=== PATIENT | female | born 1995 | race African-American/Black ===

== ENCOUNTER 2016-04-14 17:55 | Emergency (ER) | payer MEDICAID, SELFPAY ==
[2016-04-14 18:13] LABS: Bilirubin Negative (Negative); Blood, Urine Negative (Negative); Clarity Slightly Cloudy (Clear); Glucose, Urine (Dipstick) Negative (Negative); Leukocyte Trace (Negative); Nitrite Negative (Negative); Protein, Urine (Dipstick) Negative (Neg-Trace); Urobilinogen 0.2 mg/dL (0.2-1.0); pH, Urine 5.5 (5.0-9.0)
[2016-04-14 18:14] LABS: Pregnancy Test - Urine (BHCG) NEGATIVE (NEGATIVE); Pregu Control Background? CLEAR/WHITE (CLR/WHITE); Pregu Control Bar Appear? YES (CONTROL BAR); Specific Gravity 1.028 (1.002-1.036); Specific Gravity, Urine 1.028 (1.005-1.030)
[2016-04-14 18:18] LABS: RBC/HPF 0-3 HPF (0-3)
[2016-04-14 18:19] LABS: Bacteria/HPF 2+ HPF (None Seen); Squamous Epithelial 0-3 HPF (0-3); WBC/HPF 21-50 HPF (0-3)
--- NOTE | 2016-04-14 19:14 | ERRECORD ---
[facility] EMERGENCY RECORD HPI ABDOMINAL PAIN (18:05 ABUS) CHIEF COMPLAINTS: Patient presents for evaluation of abdominal pain. HISTORIAN: History provided by patient, 20 yr old F here with INESSA pain and cramping with nausea x 2 weeks without emesis, rash, vaginal discharge or itching. Sexually active (unprotected x 1). Unsure if . No dysuria. LOCATION FEMALE: Symptoms are generalized, no radiation. QUALITY: Pain is dull in nature, described as cramping. SEVERITY: Currently symptoms are mild. TIME COURSE: Gradual onset of symptoms, 2 weeks, Symptoms are intermittent, There has been no change in the patient's symptoms over time. ASSOCIATED WITH FEMALE: No associated symptoms, Associated with nausea. RELIEVED BY: Patient's condition relieved by nothing. EXACERBATED BY: Patient's condition exacerbated by nothing. ROS (18:07 ABUS) CONSTITUTIONAL: Negative constitutional review of systems, Historian denies chills, denies fever. CARDIOVASCULAR: Negative cardiovascular review of systems, Historian denies chest pain, denies palpitations. RESPIRATORY: Negative respiratory review of systems, Historian denies cough, denies shortness of breath. GI: Historian reports abdominal pain, denies constipation, denies diarrhea, reports nausea, denies vomiting. GENITOURINARY FEMALE: Negative genitourinary review of systems, Historian denies dysuria, denies frequency. SKIN: Negative skin review of systems, Historian denies rash, denies skin changes. NEUROLOGIC: Negative neurologic review of systems, Historian denies headache. HEMO/LYMPHATIC: Normal hematologic/lymphatic system review, Historian denies abnormal blood clotting. PAST MEDICAL HISTORY (18:03 MDEB) MEDICAL HISTORY: No past medical history, Flu vaccine not up to date, Tetanus immunization up to date, Pneumococcal vaccine not up to date, No past medical history. FEMALE SURGICAL HISTORY: Surgical history of tonsillectomy, TONSILLECTOMY. PSYCHIATRIC HISTORY: No previous psychiatric history. SOCIAL HISTORY: Patient denies alcohol use, Patient denies drug use, Patient has no smoking history, Patient denies alcohol use, Patient denies drug use, Patient has no smoking history, Lives at home, with family. KNOWN ALLERGIES No Known Drug Allergies &a-1R&a+25V*p+0X*[id number]*c202B*c15G*c2P*p-0X&a-25V&a+1R Name: Yovani Fairchild : 1995 F20 MedRec: [id number] AcctNum: [id number] Prepared: ThuApr 14, 2016 18:57 by Interface Page 1 of 3 pMD [facility] EMERGENCY RECORD CURRENT MEDICATIONS No recorded medications VITAL SIGNS (18:00 MDEB) VITAL SIGNS: BP: 109/67, Pulse: 95, Resp: 20, Temp: 98.8 (Oral), Pain: 6, O2 sat: 98 on Room Air, Time: 04/14/2016 18:00. PHYSICAL EXAM (18:07 ABUS) CONSTITUTIONAL: Vital signs reviewed, Patient afebrile, Pulse normal, Blood pressure normal, Respiratory rate normal, Patient appears non toxic, Patient appears pain free, Patient alert and oriented to person, place and time. NECK: Neck exam normal, Neck exam included findings of normal range of motion, Trachea midline, no meningeal signs, no cervical adenopathy, no tenderness. RESPIRATORY CHEST: Respiratory and chest exam normal, Respiratory exam included findings of no respiratory distress, Chest exam included findings of chest movement symmetrical, Chest expansion equal. ABDOMEN FEMALE: Abdominal exam included findings of abdomen tender, to the epigastric region, no distension. BACK: Back exam normal, Back exam included findings of normal inspection, range of motion normal, no tenderness. NEURO: Neuro exam normal, Neuro exam findings include patient oriented to person, place and time, Speech normal, Gait normal. SKIN: Skin exam normal, Skin exam included findings of skin warm, dry, and normal in color, no rash. DOCTOR NOTES (18:08 ABUS) TEXT: 20 yr old F here with INESSA pain and cramping with nausea x 2 weeks without emesis, rash, vaginal discharge or itching. Sexually active (unprotected x 1). EXAM: NAD. abd nonspecific. Afebrile. VS stable. DDX: , Gastritis, Peptic Ulcer Disease, Esophageal Spasm, Pancreatitis, Cholecystitis, Cholelithiasis, Hepatitis. PLAN: UA, Antiemetics Final Dispo: Dx: UTI. Rx: bacrim and Zofran. Home with follow up and return precautions. All results of testing and evaluation were shared with the patient who verbalized understanding and agreement with the plan of care. Level of Complexity / Medical Decision Making: Low. PROBLEM LIST No recorded problems DIAGNOSIS (18:43 ABUS) FINAL: PRIMARY: UTI. PRESCRIPTION (18:43 ABUS) &a-1R&a+25V*p+0X*c3797W*c202B*c15G*c2P*p-0X&a-25V&a+1R Name: Yovani Fairchild : 1995 10 MedRec: [id number] AcctNum: [id number] Prepared: ThuApr 14, 2016 18:57 by Interface Page 2 of 3 pMD [facility] EMERGENCY RECORD Pyridium: TABLET : 100 mg : ORAL : Quantity: 1 Unit: tab(s) Route: ORAL Schedule: 2 times a day Dispense: 10 Unit: tab(s) May substitute. Refills: No Refills . NOTES: No Refills. Zofran ODT: TABLET,DISINTEGRATING : 4 mg : ORAL : Quantity: 1 Unit: tab(s) Route: ORAL Schedule: every 6 hours PRN Dispense: 6 Unit: tab(s) May substitute. Refills: No Refills . NOTES: ^s=No Refills No Refills. Bactrim DS: TABLET : 800 mg-160 mg : ORAL : Quantity: 1 Unit: tab(s) Route: ORAL Schedule: 2 times a day Dispense: 10 Unit: tab(s) May substitute. Refills: No Refills . NOTES: ^s=^s=No Refills No Refills No Refills. DISPOSITION PATIENT: Disposition Type: Discharge, Disposition: *Discharge Home, Condition: Good. (18:43 ABUS) Patient left the department. (18:53 MDEB) Diamond: NATALY=MD Nita, Matt MADRIDEB=KORIN Francisco, Fara &a-1R&a+25V*p+0X*y2046J*c202B*c15G*c2P*p-0X&a-25V&a+1R Name: Yovani Fairchild : 1995 10 MedRec: [id number] AcctNum: [id number] Prepared: Didier Apr 14, 2016 18:57 by Interface Page 3 of 3 pMD MTDD
--- NOTE | 2016-04-14 19:19 | PICIS ---
[facility] EMERGENCY RECORD TRIAGE (18:03 MDEB) PATIENT: NAME: Yovani Fairchild, AGE: 20, GENDER: female, : Sat 1995, TIME OF GREET: ThuApr 14, 2016 17:56, PREFERRED LANGUAGE: Romanian, RACE: Black or , ETHNICITY: Not or , FALL RISK: NO, ECODE BILLING MAP: [facility], SSN: [id number], Zip Code: [address], KG WEIGHT: 52.16, PHONE: , , , PERSON ID: [id number], PCP: NO PCP. (18:03 MDEB) TRIAGE NOTES: NAUSEA/ ABD PAIN FOR 2 WKS. (18:03 MDEB) COMPLAINT: ABDOMINAL PAIN,NAUSEA. (18:03 MDEB) ADMISSION: URGENCY: 3 Urgent, ADMISSION SOURCE: Home, TRANSPORT: Walk-in, BED: TRIAGE. (18:03 MDEB) PAIN: Patient complains of pain described as, aching, on a scale 0-10 patient rates pain as 6. (18:03 MDEB) IMMUNIZATIONS: Tetanus immunization up to date. (18:03 MDEB) TRIAGE SCREENING: Patient denies suicidal ideation, Patient denies presence of domestic violence. (18:03 MDEB) PROVIDERS: TRIAGE NURSE: Fara Francisco RN. (18:03 MDEB) VITAL SIGNS: BP 109/67, Pulse 95, Resp 20, Temp 98.8, (Oral), Pain 6, O2 Sat 98, on Room Air, Time 04/14/2016 18:00. (18:00 MDEB) PREVIOUS VISIT ALLERGIES: No Known Drug Allergies. (18:03 MDEB) KNOWN ALLERGIES No Known Drug Allergies CURRENT MEDICATIONS No recorded medications VITAL SIGNS (18:00 MDEB) VITAL SIGNS: BP: 109/67, Pulse: 95, Resp: 20, Temp: 98.8 (Oral), Pain: 6, O2 sat: 98 on Room Air, Time: 04/14/2016 18:00. ORDER DETAILS Order Name: Test, Urine (BHCG), Status: Active, Time: 18:05 04/14/2016, User: AB, - Ordered for: MD Moya Anthony, - Entered by: MD Moya Anthony - ThuApr 14, 2016 18:05, - Quantity: 1, Order Name: Urinalysis w/ Rflx Microscopic, Status: Active, Time: 18:05 04/14/2016, User: NATALY, - Ordered for: MD Moya Anthony, - Entered by: MD Moya Anthony - ThuApr 14, 2016 18:05, - Quantity: 1. HPI ABDOMINAL PAIN (18:05 ABUS) CHIEF COMPLAINTS: Patient presents for evaluation of abdominal pain. HISTORIAN: History provided by patient, 20 yr old F here with INESSA pain and cramping with nausea &a-1R&a+25V*p+0X*m5232E*c202B*c15G*c2P*p-0X&a-25V&a+1R Name: Yovani Fairchild : 1995 F20 MedRec: [id number] AcctNum: [id number] Prepared: ThuApr 14, 2016 19:04 by Interface Page 1 of 5 pMD [facility] EMERGENCY RECORD x 2 weeks without emesis, rash, vaginal discharge or itching. Sexually active (unprotected x 1). Unsure if . No dysuria. LOCATION FEMALE: Symptoms are generalized, no radiation. QUALITY: Pain is dull in nature, described as cramping. SEVERITY: Currently symptoms are mild. TIME COURSE: Gradual onset of symptoms, 2 weeks, Symptoms are intermittent, There has been no change in the patient's symptoms over time. ASSOCIATED WITH FEMALE: No associated symptoms, Associated with nausea. RELIEVED BY: Patient's condition relieved by nothing. EXACERBATED BY: Patient's condition exacerbated by nothing. ROS (18:07 ABUS) CONSTITUTIONAL: Negative constitutional review of systems, Historian denies chills, denies fever. CARDIOVASCULAR: Negative cardiovascular review of systems, Historian denies chest pain, denies palpitations. RESPIRATORY: Negative respiratory review of systems, Historian denies cough, denies shortness of breath. GI: Historian reports abdominal pain, denies constipation, denies diarrhea, reports nausea, denies vomiting. GENITOURINARY FEMALE: Negative genitourinary review of systems, Historian denies dysuria, denies frequency. SKIN: Negative skin review of systems, Historian denies rash, denies skin changes. NEUROLOGIC: Negative neurologic review of systems, Historian denies headache. HEMO/LYMPHATIC: Normal hematologic/lymphatic system review, Historian denies abnormal blood clotting. PAST MEDICAL HISTORY (18:03 MDEB) MEDICAL HISTORY: No past medical history, Flu vaccine not up to date, Tetanus immunization up to date, Pneumococcal vaccine not up to date, No past medical history. FEMALE SURGICAL HISTORY: Surgical history of tonsillectomy, TONSILLECTOMY. PSYCHIATRIC HISTORY: No previous psychiatric history. SOCIAL HISTORY: Patient denies alcohol use, Patient denies drug use, Patient has no smoking history, Patient denies alcohol use, Patient denies drug use, Patient has no smoking history, Lives at home, with family. PHYSICAL EXAM (18:07 ABUS) CONSTITUTIONAL: Vital signs reviewed, Patient afebrile, Pulse normal, Blood pressure normal, Respiratory rate normal, Patient appears non toxic, Patient appears pain free, Patient alert and oriented to person, place and time. NECK: Neck exam normal, Neck exam included findings of normal &a-1R&a+25V*p+0X*j8565M*c202B*c15G*c2P*p-0X&a-25V&a+1R Name: Yovani Fairchild : 1995 F20 MedRec: [id number] AcctNum: [id number] Prepared: ThuApr 14, 2016 19:04 by Interface Page 2 of 5 pMD [facility] EMERGENCY RECORD range of motion, Trachea midline, no meningeal signs, no cervical adenopathy, no tenderness. RESPIRATORY CHEST: Respiratory and chest exam normal, Respiratory exam included findings of no respiratory distress, Chest exam included findings of chest movement symmetrical, Chest expansion equal. ABDOMEN FEMALE: Abdominal exam included findings of abdomen tender, to the epigastric region, no distension. BACK: Back exam normal, Back exam included findings of normal inspection, range of motion normal, no tenderness. NEURO: Neuro exam normal, Neuro exam findings include patient oriented to person, place and time, Speech normal, Gait normal. SKIN: Skin exam normal, Skin exam included findings of skin warm, dry, and normal in color, no rash. EVENTS TRANSFER: Triage to Emergency Triage. (ThuApr 14, 2016 18:03 MDEB) Emergency Triage to Main ED -03. (18:05 MDEB) Removed from Emergency Main ED -03. (18:53 YUE) DOCTOR NOTES (18:08 ABUS) TEXT: 20 yr old F here with INESSA pain and cramping with nausea x 2 weeks without emesis, rash, vaginal discharge or itching. Sexually active (unprotected x 1). EXAM: NAD. abd nonspecific. Afebrile. VS stable. DDX: , Gastritis, Peptic Ulcer Disease, Esophageal Spasm, Pancreatitis, Cholecystitis, Cholelithiasis, Hepatitis. PLAN: UA, Antiemetics Final Dispo: Dx: UTI. Rx: bacrim and Zofran. Home with follow up and return precautions. All results of testing and evaluation were shared with the patient who verbalized understanding and agreement with the plan of care. Level of Complexity / Medical Decision Making: Low. PROBLEM LIST No recorded problems DIAGNOSIS (18:43 ABUS) FINAL: PRIMARY: UTI. DISPOSITION PATIENT: Disposition Type: Discharge, Disposition: *Discharge Home, Condition: Good. (18:43 ABUS) Patient left the department. (18:53 MDSEBASTIEN) INSTRUCTION (18:44 ABUS) DISCHARGE: UTI CYSTITIS FEMALE ADULT. FOLLOWUP: [facility], /[facility], [address] [place] [address], , Follow up with Primary &a-1R&a+25V*p+0X*p5037J*c202B*c15G*c2P*p-0X&a-25V&a+1R Name: Yovani Fairchild : 1995 F20 MedRec: [id number] AcctNum: [id number] Prepared: ThuApr 14, 2016 19:04 by Interface Page 3 of 5 pMD [facility] EMERGENCY RECORD Care Physician in 3-4 days. SPECIAL: As discussed in the ED, please keep any upcoming appointments with your primary doctor or call the referral provided to you today to establish a follow up evaluation or ongoing medical care. Please come back if you start to have fever, vomiting, or any symptoms that concern you. PRESCRIPTION (18:43 ABUS) Pyridium: TABLET : 100 mg : ORAL : Quantity: 1 Unit: tab(s) Route: ORAL Schedule: 2 times a day Dispense: 10 Unit: tab(s) May substitute. Refills: No Refills . NOTES: No Refills. Zofran ODT: TABLET,DISINTEGRATING : 4 mg : ORAL : Quantity: 1 Unit: tab(s) Route: ORAL Schedule: every 6 hours PRN Dispense: 6 Unit: tab(s) May substitute. Refills: No Refills . NOTES: ^s=No Refills No Refills. Bactrim DS: TABLET : 800 mg-160 mg : ORAL : Quantity: 1 Unit: tab(s) Route: ORAL Schedule: 2 times a day Dispense: 10 Unit: tab(s) May substitute. Refills: No Refills . NOTES: ^s=^s=No Refills No Refills No Refills. IMAGING *DISCHARGE INSTRUCTIONS RECEIPT: Image captured from scanner. (18:52 MDEB) *SUPPLY CHARGE SHEET: Image captured from scanner. (18:53 MDEB) ADMIN DIGITAL SIGNATURE: MD Moya Anthony. (18:44 ABUS) MD Moya Anthony. (18:46 ABUS) RESULTS LABORATORY: Test, Urine (BHCG) Collection DT: ThuApr 14, 2016 18:12, Test - Urine (BHCG) NEGATIVE , Range (NEGATIVE), Method of sensitivity- Indeterminant: results should be repeated, after 48 hours. Positive: results may be detected as early as 4-5 days before a first missed menses. Elimination of BHCG-, Elimination following first trimester D&C: 29-44 Days , Elimination following term : 8-24 Days , &a-1R&a+25V*p+0X*e3614J*c202B*c15G*c2P*p-0X&a-25V&a+1R Name: Yovani Fairchild : 1995 F20 MedRec: [id number] AcctNum: [id number] Prepared: ThuApr 14, 2016 19:04 by Interface Page 4 of 5 pMD [facility] EMERGENCY RECORD Specific [place] 1.028 , Range (1.002-1.036), A dilute urine specimen may, not contain roofing sales representative levels of hCG. If is still, suspected, a first morning urine specimen OR a random blood specimen should, be obtained from the patient 48-72 hours later and re-tested. , . (18:21 [facility]) Urinalysis w/ Rflx Microscopic Collection DT: ThuApr 14, 2016 18:12, Color Yellow , Range (Yellow), Clarity Slightly Cloudy , Range (Clear), Specific [place], Urine 1.028 , Range (1.005-1.030), pH, Urine 5.5 , Range (5.0-9.0), *Leukocyte Trace - H , Range (Negative), Nitrite Negative , Range (Negative), Protein, Urine (Dipstick) Negative mg/dL, Range (Neg-Trace), Glucose, Urine (Dipstick) Negative mg/dL, Range (Negative), Ketone, Urine Negative mg/dL, Range (Negative), Urobilinogen 0.2 mg/dL, Range (0.2-1.0), Bilirubin Negative , Range (Negative), Blood, Urine Negative , Range (Negative). (18:21 [facility]) Urine Microscopic Collection DT: ThuApr 14, 2016 18:12, RBC/HPF 0-3 HPF, Range (0-3), *WBC/HPF 21-50 - H HPF, Range (0-3), Squamous Epithelial 0-3 HPF, Range (0-3), *Bacteria/HPF 2+ - H HPF, Range (None Seen). (18:22 [facility]) Urinalysis w/ Rflx Microscopic Collection DT: ThuApr 14, 2016 18:12, Color Yellow , Range (Yellow), Clarity Slightly Cloudy , Range (Clear), Specific [place], Urine 1.028 , Range (1.005-1.030), pH, Urine 5.5 , Range (5.0-9.0), *Leukocyte Trace - H , Range (Negative), Nitrite Negative , Range (Negative), Protein, Urine (Dipstick) Negative mg/dL, Range (Neg-Trace), Glucose, Urine (Dipstick) Negative mg/dL, Range (Negative), Ketone, Urine Negative mg/dL, Range (Negative), Urobilinogen 0.2 mg/dL, Range (0.2-1.0), Bilirubin Negative , Range (Negative), Blood, Urine Negative , Range (Negative). (18:22 YUE) Diamond: NATALY=MD Nita, Matt TURNER=KORIN Francisco, Fara &a-1R&a+25V*p+0X*g7994W*c202B*c15G*c2P*p-0X&a-25V&a+1R Name: Yovani Fairchild : 1995 F20 MedRec: [id number] AcctNum: [id number] Prepared: ThuApr 14, 2016 19:04 by Interface Page 5 of 5 pMD MTDD
== END 2016-04-14 18:48 | disposition home or self-care (01) ==
LOC: MADERS 17:55
DX: N39.0 Urinary tract infection, site not specified (principal)
CPT/HCPCS: 81003; 81015; 81025; 87077; 87086; 87186; 99283

== ENCOUNTER 2016-09-25 12:27 | Emergency (ER) | payer MEDICAID, SELFPAY ==
[2016-09-25] MEDS ORDERED: Ondansetron ODT 4 MG TAB ONE (12:50)
[2016-09-25 12:51] LABS: Bilirubin Negative (Negative); Blood, Urine Negative (Negative); Clarity Clear (Clear); Glucose, Urine (Dipstick) Negative (Negative); Leukocyte Negative (Negative); Nitrite Negative (Negative); Pregnancy Test - Urine (BHCG) Negative (Negative); Protein, Urine (Dipstick) Negative (Neg-Trace); Urobilinogen 0.2 mg/dL (0.2-1.0)
[2016-09-25 12:52] LABS: Pregu Control Background? CLEAR/WHITE (CLR/WHITE); Pregu Control Bar Appear? YES (CONTROL BAR)
== END 2016-09-25 13:00 | disposition home or self-care (01) ==
LOC: MADERS 12:27
DX: R11.0 Nausea (principal)
CPT/HCPCS: 81003; 81025; 99283; Q0162

== ENCOUNTER 2016-11-11 20:56 | Emergency (ER) | payer SELFPAY ==
[2016-11-11] MEDS ORDERED: Ibuprofen 600 MG TAB ONE (21:31)
== END 2016-11-11 22:27 | disposition home or self-care (01) ==
LOC: MADERS 20:56
DX: J02.9 Acute pharyngitis, unspecified (principal)
CPT/HCPCS: 87081; 87430; 99283

== ENCOUNTER 2016-12-01 01:36 | Emergency (ER) | payer MEDICAID, SELFPAY ==
[2016-12-01] MEDS ORDERED: Lidocaine 1% w/Epinephrine 1:100K 20 ML VIAL ONE (02:32)
[2016-12-01] MEDS ORDERED: Naproxen 500 MG TAB ONE (03:40)
[2016-12-01] MEDS ORDERED: Bacitracin Zinc 1 Packet ONE (03:40)
[2016-12-01] MEDS ORDERED: Cephalexin 500 MG CAP ONE (03:40)
== END 2016-12-01 03:49 | disposition home or self-care (01) ==
LOC: MADERS 01:36
DX: S51.811A Laceration without foreign body of right forearm, initial encounter (principal); X99.9XXA Assault by unspecified sharp object, initial encounter
CPT/HCPCS: 12001; J2001

== ENCOUNTER 2016-12-25 12:43 | Emergency (ER) | payer MEDICAID ==
[2016-12-25 13:14] LABS: Bilirubin Negative (Negative); Blood, Urine Negative (Negative); Clarity Clear (Clear); Glucose, Urine (Dipstick) Negative (Negative); Leukocyte Negative (Negative); Nitrite Negative (Negative); Protein, Urine (Dipstick) Negative (Neg-Trace); Specific Gravity, Urine 1.003 (1.002-1.036); Urobilinogen 0.2 mg/dL (0.2-1.0); pH, Urine 5.5 (5.0-9.0)
[2016-12-25 13:50] LABS: BHCG - Serum POSITIVE (NEGATIVE); Pregs Control Background? CLEAR/WHITE (CLR/WHITE); Pregs Control Bar Appear? YES (CONTROL BAR)
[2016-12-25 13:51] LABS: Pregnancy Test - Urine (BHCG) POSITIVE (Negative); Pregu Control Background? CLEAR/WHITE (CLR/WHITE); Pregu Control Bar Appear? YES (CONTROL BAR); Specific Gravity 1.003 (1.002-1.036)
== END 2016-12-25 14:13 | disposition home or self-care (01) ==
LOC: MADERS 12:43
DX: Z32.01 Encounter for pregnancy test, result positive (principal)
CPT/HCPCS: 36415; 81003; 81025; 84703; 99282

== ENCOUNTER 2017-03-07 20:41 | Emergency (ER) | payer MEDICAID, OTHER ==
[2017-03-07] MEDS ORDERED: Nitrofurantoin Monohyd/M-Cryst 100 MG CAP ONE (21:12)
[2017-03-07] MEDS ORDERED: HYDROcodone/Acetaminophen 5/325 mg Tablet ONE (21:12)
== END 2017-03-07 21:20 | disposition home or self-care (01) ==
LOC: MADERS 20:41
DX: O99.89 Other specified diseases and conditions complicating pregnancy, childbirth and the puerperium (principal); H65.91 Unspecified nonsuppurative otitis media, right ear
CPT/HCPCS: 99282

== ENCOUNTER 2017-04-03 18:40 | Emergency (ER) | payer OTHER ==
[2017-04-03] MEDS ORDERED: Oseltamivir 75 MG CAP ONE (20:08)
== END 2017-04-03 20:21 | disposition home or self-care (01) ==
LOC: MADERS 18:40
DX: O99.512 Diseases of the respiratory system complicating pregnancy, second trimester (principal); J11.1 Influenza due to unidentified influenza virus with other respiratory manifestations; Z3A.18 18 weeks gestation of pregnancy
CPT/HCPCS: 99283

== ENCOUNTER 2017-05-20 09:08 | Emergency (ER) | payer OTHER ==
[2017-05-20] MEDS ORDERED: Ondansetron ODT 4 MG TAB ONE (09:38)
[2017-05-20] MEDS ORDERED: Acetaminophen 325 MG TAB ONE (09:38)
[2017-05-20 10:10] LABS: Bilirubin Negative (Negative); Blood, Urine Trace (Negative); Glucose, Urine (Dipstick) Negative (Negative); Leukocyte Moderate (Negative); Nitrite Negative (Negative); Protein, Urine (Dipstick) 30 mg/dL (Neg-Trace); Urobilinogen 0.2 mg/dL (0.2-1.0)
[2017-05-20 10:11] LABS: Clarity Cloudy (Clear)
[2017-05-20 10:12] LABS: Bacteria/HPF 3+ HPF (None Seen); RBC/HPF 0-3 HPF (0-3)
== END 2017-05-20 10:30 | disposition home or self-care (01) ==
LOC: MADERS 09:08
DX: O99.512 Diseases of the respiratory system complicating pregnancy, second trimester (principal); J30.1 Allergic rhinitis due to pollen; O23.42 Unspecified infection of urinary tract in pregnancy, second trimester; Z3A.25 25 weeks gestation of pregnancy
CPT/HCPCS: 81003; 81015; 87077; 87086; 87186; 99284; Q0162

== ENCOUNTER 2017-07-07 23:41 | Emergency (ER) | payer OTHER ==
[~2017-07-07 23:41] MED LIST: Sodium Chloride 0.9% 1,000 ML BAG ONE
[2017-07-08 00:18] LABS: Bilirubin Negative (Negative); Blood, Urine Large (Negative); Clarity Clear (Clear); Glucose, Urine (Dipstick) Negative (Negative); Leukocyte Moderate (Negative); Nitrite Negative (Negative); Protein, Urine (Dipstick) Negative (Neg-Trace); Specific Gravity, Urine 1.015 (1.005-1.030); pH, Urine 7.5 (5.0-9.0)
[2017-07-08 00:25] LABS: #Basophils 0.1 thou/uL (0.0-0.2); #Eosinphils 0.2 thou/uL (0.0-0.7); #Lymphocytes 2.1 thou/uL (1.20-3.40); #Monocytes 0.7 thou/uL (0.11-0.59); #Neutrophils 7.8 thou/uL (1.40-6.50); %Basophils 0.7 % (0.0-1.0); %Eosinophils 1.6 % (0.0-10.0); %Lymphocytes 19.5 % (28.0-48.0); %Neutrophils 72.2 % (31.0-61.0); Hemoglobin 10.9 g/dL (12.0-16.0); Mean Corpuscular HGB CONC 35.2 g/dL (32.0-36.0); Mean Corpuscular Hemoglobin 29.4 pg (25.0-35.0); Mean Corpuscular Volume 83.6 fl (77.0-87.0); Mean Platelet Volume 8.2 fL (7.4-10.4); Platelet Count 212 thou/uL (130-400); RBC Distribution Width 12.5 % (11.5-14.5); Red Blood Cell (RBC) Count 3.73 mill/uL (4.00-5.20); White Blood Cell (WBC) Count 10.8 thou/uL (4.8-10.8)
[2017-07-08 00:32] LABS: Bacteria/HPF 2+ HPF (None Seen); RBC/HPF GREATER THAN 50-TNTC HPF (0-3)
[2017-07-08 00:34] LABS: PTT 27.2 SEC (22.9-36.1); Prothrombin Time 12.9 SEC (12.0-14.7)
[2017-07-08 00:44] LABS: ALT (SGPT) 11 U/L (8-55); AST (SGOT) 15 U/L (5-34); Albumin 3.7 g/dL (3.5-5.0); Alkaline Phosphatase 83 U/L (40-150); Anion Gap 13 mmol/L (10-20); BUN (Urea Nitrogen) 6 mg/dL (7.0-18.7); Bilirubin, Total 0.5 mg/dL (0.2-1.2); Carbon Dioxide 23 mmol/L (22-29); Chloride 108 mmol/L (98-107); Globulin 3.6 g/dL (2.4-3.5); Glucose 86 mg/dL (70-105); Potassium 3.6 mmol/L (3.5-5.1); Protein, Total 7.3 g/dL (6.0-8.3); Sodium 140 mmol/L (136-145)
[2017-07-08 01:14] LABS: Calc. Creatinine Clearance 0 mL/min (70-130); Estimated GFR-MDRD Greater than 90
== END 2017-07-08 00:53 | disposition short-term general hospital (02) ==
LOC: MADERS 23:41
DX: O46.93 Antepartum hemorrhage, unspecified, third trimester (principal); Z3A.32 32 weeks gestation of pregnancy
CPT/HCPCS: 80053; 81003; 81015; 85025; 85610; 85730; 86900; 86901; 99284; J7050

== ENCOUNTER 2017-10-10 01:39 | Emergency (ER) | payer OTHER ==
[2017-10-10 02:08] LABS: Bilirubin Negative (Negative); Blood, Urine Large (Negative); Clarity Cloudy (Clear); Glucose, Urine (Dipstick) Negative (Negative); Leukocyte Small (Negative); Nitrite Negative (Negative); Protein, Urine (Dipstick) 30 mg/dL (Neg-Trace); Urobilinogen 0.2 mg/dL (0.2-1.0); pH, Urine 5.5 (5.0-9.0)
[2017-10-10 02:11] LABS: Bacteria/HPF 3+ HPF (None Seen); RBC/HPF GREATER THAN 50-TNTC HPF (0-3); WBC/HPF 21-50 HPF (0-3); Yeast-All Forms Rare HPF (None Seen)
[2017-10-10 02:29] LABS: Pregnancy Test - Urine (BHCG) Negative (Negative); Pregu Control Background? CLEAR/WHITE (CLR/WHITE); Pregu Control Bar Appear? YES (CONTROL BAR)
[2017-10-10 02:31] LABS: #Basophils 0.1 thou/uL (0.0-0.2); #Eosinphils 0.5 thou/uL (0.0-0.7); #Lymphocytes 2.7 thou/uL (1.20-3.40); #Monocytes 0.5 thou/uL (0.11-0.59); %Eosinophils 6.4 % (0.0-10.0); %Lymphocytes 34.9 % (21.0-51.0); %Monocytes 6.6 % (0.0-10.0); %Neutrophils 51.2 % (42.0-75.0); Hemoglobin 11.3 g/dL (12.0-16.0); Mean Corpuscular HGB CONC 32.5 g/dL (32.0-36.0); Mean Corpuscular Hemoglobin 25.3 pg (27.0-31.0); Mean Platelet Volume 7.3 fL (7.4-10.4); Platelet Count 232 thou/uL (130-400); RBC Distribution Width 14.1 % (11.5-14.5); Red Blood Cell (RBC) Count 4.46 mill/uL (4.20-5.40); White Blood Cell (WBC) Count 7.9 thou/uL (4.8-10.8)
[2017-10-10 02:47] LABS: ALT (SGPT) 11 U/L (8-55); AST (SGOT) 13 U/L (5-34); Albumin 4.4 g/dL (3.5-5.0); Alkaline Phosphatase 54 U/L (40-150); Anion Gap 13 mmol/L (10-20); BUN (Urea Nitrogen) 13 mg/dL (7.0-18.7); Bilirubin, Total 0.6 mg/dL (0.2-1.2); Calc. Creatinine Clearance 0 mL/min (70-130); Calcium 9.4 mg/dL (7.8-10.44); Carbon Dioxide 24 mmol/L (22-29); Chloride 107 mmol/L (98-107); Estimated GFR-MDRD Greater than 90; Glucose 88 mg/dL (70-105); Potassium 3.6 mmol/L (3.5-5.1); Protein, Total 7.4 g/dL (6.0-8.3); Sodium 140 mmol/L (136-145)
== END 2017-10-10 03:03 | disposition home or self-care (01) ==
LOC: MADERS 01:39
DX: O72.2 Delayed and secondary postpartum hemorrhage (principal); O90.81 Anemia of the puerperium
CPT/HCPCS: 36415; 80053; 81003; 81015; 81025; 85025; 87077; 87086; 87186; 99284

== ENCOUNTER 2017-10-17 19:23 | Emergency (ER) | payer OTHER | END 2017-10-17 21:16 | disposition home or self-care (01) | LOC: MADERS 19:23 | DX: J06.9 Acute upper respiratory infection, unspecified (principal) | CPT/HCPCS: 99282 ==

== ENCOUNTER 2017-12-27 15:13 | Emergency (ER) | payer OTHER ==
[2017-12-27] MEDS ORDERED: Bacitracin Zinc 1 Packet ONE (15:28)
[2017-12-27] MEDS ORDERED: Ketorolac Tromethamine 30 MG/ML VIAL ONE (15:28)
[2017-12-27] MEDS ORDERED: Morphine 10 MG/ML VIAL ONE (15:28)
== END 2017-12-27 16:13 | disposition home or self-care (01) ==
LOC: MADERS 15:13
DX: T23.001A Burn of unspecified degree of right hand, unspecified site, initial encounter (principal); I95.9 Hypotension, unspecified; X19.XXXA Contact with other heat and hot substances, initial encounter
CPT/HCPCS: 16020; 96372; J1885; J2270

== ENCOUNTER 2018-02-19 18:30 | Emergency (ER) | payer OTHER | END 2018-02-19 19:10 | disposition home or self-care (01) | LOC: MADERS 18:30 | DX: R11.0 Nausea (principal); I95.9 Hypotension, unspecified | CPT/HCPCS: 99281 ==

== ENCOUNTER 2018-04-07 12:06 | Emergency (ER) | payer MEDICAID ==
[2018-04-07] MEDS ORDERED: Ondansetron PF 4 MG/2 ML Vial ONE (12:51)
[2018-04-07] MEDS ORDERED: Sodium Chloride 0.9% 1,000 ML ONE (12:51)
[2018-04-07 12:56] LABS: #Eosinphils 0.2 thou/uL (0.0-0.7); #Lymphocytes 1.4 thou/uL (1.20-3.40); #Monocytes 0.5 thou/uL (0.11-0.59); #Neutrophils 3.2 thou/uL (1.40-6.50); %Basophils 0.9 % (0.0-1.0); %Eosinophils 3.4 % (0.0-10.0); %Monocytes 8.7 % (0.0-10.0); Hemoglobin 12.2 g/dL (12.0-16.0); Mean Corpuscular HGB CONC 31.7 g/dL (32.0-36.0); Mean Corpuscular Hemoglobin 26.2 pg (27.0-31.0); Mean Corpuscular Volume 82.7 fL (78.0-98.0); Mean Platelet Volume 9.3 fL (7.4-10.4); Platelet Count 242 thou/uL (130-400); RBC Distribution Width 13.5 % (11.5-14.5); Red Blood Cell (RBC) Count 4.66 mill/uL (4.20-5.40); White Blood Cell (WBC) Count 5.3 thou/uL (4.8-10.8)
[2018-04-07 13:06] LABS: Bilirubin Negative (Negative); Blood, Urine Negative (Negative); Clarity Hazy (Clear); Glucose, Urine (Dipstick) Negative (Negative); Leukocyte Moderate (Negative); Nitrite Negative (Negative); Protein, Urine (Dipstick) Negative (Neg-Trace)
[2018-04-07 13:07] LABS: Bacteria/HPF 1+ HPF (None Seen); RBC/HPF 0-3 HPF (0-3); Specific Gravity, Urine 1.023 (1.002-1.036)
[2018-04-07 13:14] LABS: ALT (SGPT) 9 U/L (8-55); AST (SGOT) 12 U/L (5-34); Albumin 4.7 g/dL (3.5-5.0); Alkaline Phosphatase 49 U/L (40-150); Anion Gap 16 mmol/L (10-20); BUN (Urea Nitrogen) 10 mg/dL (7.0-18.7); Bilirubin, Total 0.4 mg/dL (0.2-1.2); Calc. Creatinine Clearance 0 mL/min (70-130); Calcium 10.3 mg/dL (7.8-10.44); Carbon Dioxide 22 mmol/L (22-29); Chloride 104 mmol/L (98-107); Estimated GFR-MDRD Greater than 90; Globulin 3.7 g/dL (2.4-3.5); Glucose 85 mg/dL (70-105); Potassium 3.6 mmol/L (3.5-5.1); Protein, Total 8.4 g/dL (6.0-8.3); Sodium 138 mmol/L (136-145)
== END 2018-04-07 14:01 | disposition home or self-care (01) ==
LOC: MADERS 12:06
DX: O21.9 Vomiting of pregnancy, unspecified (principal); Z3A.13 13 weeks gestation of pregnancy
CPT/HCPCS: 80053; 81003; 81015; 85025; 87077; 87081; 87086; 87186; 87430; 87804; 96361; 96374; J2405; J7050

== ENCOUNTER 2018-09-02 13:06 | Outpatient (CLI) | payer OTHER | END 2018-09-02 13:07 | disposition home or self-care (01) | LOC: MADLABBHPM 13:06 | PROVIDERS: ATTEND Family Medicine | DX: Z34.03 Encounter for supervision of normal first pregnancy, third trimester (principal) | CPT/HCPCS: 36415; 82951; 82952 ==

== ENCOUNTER 2019-02-22 10:56 | Emergency (ER) | payer OTHER, SELFPAY | END 2019-02-22 12:23 | disposition home or self-care (01) | LOC: MADERS 10:56 | DX: O98.511 Other viral diseases complicating pregnancy, first trimester (principal); B34.9 Viral infection, unspecified; Z3A.10 10 weeks gestation of pregnancy | CPT/HCPCS: 87804; 99283 ==

== ENCOUNTER 2019-04-29 14:44 | Outpatient (CLI) | payer OTHER | END 2019-04-29 14:45 | disposition home or self-care (01) | LOC: MADLABBHPM 14:44 | PROVIDERS: ATTEND Family Medicine | DX: O09.292 Supervision of pregnancy with other poor reproductive or obstetric history, second trimester (principal) | CPT/HCPCS: 36415; 82950 ==

== ENCOUNTER 2019-06-07 13:13 | Emergency (ER) | payer MEDICAID, OTHER | END 2019-06-07 14:35 | disposition home or self-care (01) | LOC: MADERS 13:13 | DX: J02.9 Acute pharyngitis, unspecified (principal) | CPT/HCPCS: 87081; 87430; 87804; J7620 ==

== ENCOUNTER 2019-09-19 00:33 | Emergency (ER) | payer OTHER ==
[2019-09-19] MEDS ORDERED: Sodium Chloride 0.9% 1,000 ML ONE (01:01)
== END 2019-09-19 02:03 | disposition short-term general hospital (02) ==
LOC: MADERS 00:33
DX: O99.89 Other specified diseases and conditions complicating pregnancy, childbirth and the puerperium (principal); R10.30 Lower abdominal pain, unspecified; R42 Dizziness and giddiness; Z3A.37 37 weeks gestation of pregnancy
CPT/HCPCS: 96360; J7050

== ENCOUNTER 2020-01-14 21:52 | Emergency (ER) | payer OTHER ==
[2020-01-14] MEDS ORDERED: Lidocaine 1% (PF) 30 ML VIAL ONE (22:31)
[2020-01-14] MEDS ORDERED: cefTRIAXone\\ROCEPHIN 1 GM VIAL ONE (22:31)
[2020-01-14] MEDS ORDERED: Lidocaine 1% 20 ML MDV ONE (22:32)
== END 2020-01-14 22:57 | disposition home or self-care (01) ==
LOC: MADERS 21:52
DX: H66.92 Otitis media, unspecified, left ear (principal)
CPT/HCPCS: 96372; 99282; J0696; J2001

== ENCOUNTER 2020-03-27 20:15 | Emergency (ER) | payer OTHER ==
[2020-03-27 21:14] LABS: Bilirubin Negative (Negative); Blood, Urine Negative (Negative); Glucose, Urine (Dipstick) Negative (Negative); Ketone, Urine Negative (Negative); Leukocyte Small (Negative); Nitrite Negative (Negative); Protein, Urine (Dipstick) Negative (Neg-Trace); Specific Gravity, Urine 1.025 (1.005-1.030); pH, Urine 5.5 (5.0-9.0)
[2020-03-27] MEDS ORDERED: Sodium Chloride 0.9% 1,000 ML ONE ×2 (21:14→22:58)
[2020-03-27] MEDS ORDERED: Ibuprofen 800 MG TAB ONE (21:14)
[2020-03-27] MEDS ORDERED: Acetaminophen 500 MG TAB ONE (21:14)
--- NOTE | 2020-03-27 21:20 | RAD ---
PORTABLE CHEST: 03/27/20 PROVIDED CLINICAL HISTORY: Fever. FINDINGS: Comparison 11/28/08. Cardiac and mediastinal silhouette is within normal limits. No focal consolidation, pleural fluid or pneumothorax apparent. IMPRESSION: No evidence for an acute cardiopulmonary process. POS: GABE
[2020-03-27 21:27] LABS: Pregnancy Test - Urine (BHCG) Negative (Negative); Pregu Control Background? CLEAR/WHITE (CLR/WHITE); Pregu Control Bar Appear? YES (CONTROL BAR); Specific Gravity 1.025 (1.002-1.036)
[2020-03-27 21:28] LABS: Clarity Slightly Cloudy (Clear)
[2020-03-27 21:29] LABS: Bacteria/HPF 1+ HPF (None Seen); RBC/HPF None Seen HPF (0-3)
[2020-03-27 21:42] LABS: #Eosinphils 0.3 thou/uL (0.0-0.7); #Lymphocytes 0.6 thou/uL (1.20-3.40); #Monocytes 0.3 thou/uL (0.11-0.59); #Neutrophils 8.1 thou/uL (1.40-6.50); %Basophils 0.5 % (0.0-1.0); %Eosinophils 3.1 % (0.0-10.0); %Lymphocytes 6.7 % (21.0-51.0); %Monocytes 3.3 % (0.0-10.0); %Neutrophils 86.4 % (42.0-75.0); Hemoglobin 13.1 g/dL (12.0-16.0); Mean Corpuscular HGB CONC 31.2 g/dL (32.0-36.0); Mean Corpuscular Hemoglobin 25.3 pg (27.0-31.0); Mean Platelet Volume 8.9 fL (7.4-10.4); Platelet Count 197 thou/uL (130-400); RBC Distribution Width 13.7 % (11.5-14.5); Red Blood Cell (RBC) Count 5.18 mill/uL (4.20-5.40); White Blood Cell (WBC) Count 9.4 thou/uL (4.8-10.8)
[2020-03-27 21:59] LABS: ALT (SGPT) 19 U/L (8-55); AST (SGOT) 17 U/L (5-34); Albumin 4.6 g/dL (3.5-5.0); Alkaline Phosphatase 60 U/L (40-110); Anion Gap 16 mmol/L (10-20); BUN (Urea Nitrogen) 16 mg/dL (7.0-18.7); Bilirubin, Total 0.5 mg/dL (0.2-1.2); Calc. Creatinine Clearance 0 mL/min (70-130); Carbon Dioxide 20 mmol/L (22-29); Chloride 105 mmol/L (98-107); Globulin 2.9 g/dL (2.4-3.5); Glucose 95 mg/dL (70-105); Potassium 4.1 mmol/L (3.5-5.1); Protein, Total 7.5 g/dL (6.0-8.3); Sodium 137 mmol/L (136-145)
[2020-03-27] MEDS ORDERED: cefTRIAXone\\ROCEPHIN 2 GM VIAL ONE (22:03)
[2020-03-27] MEDS ORDERED: Sodium Chloride 0.9% 100 ML ONE (22:03)
[2020-03-28 17:42] LABS: SARS-CoV-2 MS2 Positive; SARS-CoV-2 N Gene Negative; SARS-CoV-2 S Gene Negative; SARS-CoV-2 by NAA Not Detected (NotDetected); SARS-CoV-2 orf1ab Negative
== END 2020-03-28 00:11 | disposition home or self-care (01) ==
LOC: MADERS 20:15
DX: N10 Acute pyelonephritis (principal); Z20.828 Contact with and (suspected) exposure to other viral communicable diseases
CPT/HCPCS: 36415; 71045; 80053; 81003; 81015; 81025; 83605; 84484; 85025; 87040; 87077; 87086; 87186; 87635; 87804; 96365; J0696; J3490; J7050; U0003

== ENCOUNTER 2020-05-22 17:05 | Emergency (ER) | payer OTHER ==
[2020-05-22] MEDS ORDERED: Ondansetron ODT 4 MG TAB ONE (17:58)
== END 2020-05-22 19:05 | disposition home or self-care (01) ==
LOC: MADERS 17:05
DX: K52.9 Noninfective gastroenteritis and colitis, unspecified (principal); D64.9 Anemia, unspecified
CPT/HCPCS: 99283; Q0162

== ENCOUNTER 2020-05-30 19:45 | Emergency (ER) | payer OTHER ==
--- NOTE | 2020-05-30 22:56 | RAD ---
XR Chest Pa Lat STANDARD HISTORY: Cough and hemoptysis COMPARISON: 03/27/2020 FINDINGS: The heart size is normal. The lungs are well expanded without focal areas of consolidation, pneumothorax or pleural effusions. IMPRESSION: No radiographic evidence of acute cardiopulmonary process.
[2020-05-31 16:17] LABS: SARS-CoV-2 PCR by NAA Not Detected (NotDetected)
== END 2020-05-30 23:25 | disposition home or self-care (01) ==
LOC: MADERS 19:45
DX: J06.9 Acute upper respiratory infection, unspecified (principal); J34.89 Other specified disorders of nose and nasal sinuses; Z20.822 Contact with and (suspected) exposure to COVID-19
CPT/HCPCS: 71046; 87635; U0003; U0005